=== PATIENT | male | born 1995 | race African-American/Black ===

== ENCOUNTER 2022-11-21 18:51 | Inpatient (IN) | payer OTHER ==
[~2022-11-21] VITALS: Ht 193 cm; Wt 64.9 kg
[2022-11-21 19:02] VITALS: BP_SYST 114
--- NOTE | 2022-11-21 19:23 | NUR ---
Placed in room 04 . Placed on monitoring coordinator, blood pressure machine and pulse oximeter. To gown for exam. Side rails up. Report given to PETROS SERRATO
[2022-11-21] MEDS ORDERED: cefTRIAXone 1 GM in LIDOCAINE 1%, 20 ML MDV 2.1 ML IM ONE (19:30)
[2022-11-21] MEDS ORDERED: NACL 0.9% 1,000 ML IV ONE ×2 (19:30)
--- NOTE | 2022-11-21 19:54 | NUR ---
COVID AND MRSA SWAB COLLECTED AND SENT TO LAB.
[2022-11-21 20:01] LABS: EOSINOPHILS % (AUTO) 0.2 % (0.0-4.0); HEMOGLOBIN 11.3 g/dL (14.0-18.0); LYMPHOCYTES # (AUTO) 0.1 K/uL (1.0-5.5); LYMPHOCYTES % (AUTO) 0.8 % (20.5-51.5); MEAN CORPUSCULAR HEMOGLOBIN 28 pg (27-31); MEAN CORPUSCULAR HGB CONC 33 % (32-36); MEAN CORPUSCULAR VOLUME 83 fL (79.0-98.0); MONOCYTES # (AUTO) 0.1 K/uL (0.0-1.0); MONOCYTES % (AUTO) 0.9 % (1.7-9.3); NEUTROPHILS # (AUTO) 15.1 K/uL (1.8-7.7); NEUTROPHILS % (AUTO) 98.1 % (40.0-70.0); PLATELET COUNT (AUTO) 353 K/uL (130-430); RED BLOOD CELL COUNT(AUTO) 4.08 MIL/uL (4.2-6.2); RED CELL DISTRIBUTION WIDTH 16.1 % (9.0-15.0); WHITE BLOOD COUNT (AUTO) 15.4 K/uL (4.8-10.8)
[2022-11-21 20:16] LABS: ALBUMIN 3.1 g/dL (3.4-4.8); CALCIUM 9.4 mg/dL (8.4-11.0); CREATININE 0.55 mg/dL (0.55-1.30); TOTAL BILIRUBIN 0.6 mg/dL (0.0-1.0)
[2022-11-21] MEDS ORDERED: cefTRIAXone 1 GM VIAL ONE (21:31)
[2022-11-21] MEDS ORDERED: FUROSEMIDE 40 MG/4 ML VIAL IVP ONE (21:45)
[2022-11-21] MEDS ORDERED: VANCOMYCIN HCL 1,000 MG in NS 250 ML IV ONE (21:45)
[2022-11-21] MEDS ORDERED: metroNIDAZOLE 500 mg/NS 100 ML IV ONE (21:45)
[2022-11-21] MEDS ORDERED: VANCOMYCIN HCL 1000 MG/VIAL IV ONE (21:47)
[2022-11-21] MEDS ORDERED: ACETAMINOPHEN 500 MG TABLET PO ONE (23:45)
[2022-11-21] MEDS ORDERED: ACET-73 GT ×2 (23:54)
[2022-11-21] MEDS ORDERED: FAMO20TA8 GT (23:54)
[2022-11-21] MEDS ORDERED: ASCO500T20 GT (23:54)
[2022-11-21] MEDS ORDERED: PROP10TA10 GT (23:54)
[2022-11-21] MEDS ORDERED: MIDO5TAB4 GT (23:54)
[2022-11-21] MEDS ORDERED: AMIN30LI2 GT (23:54)
[2022-11-21] MEDS ORDERED: FLAGYL GT (23:54)
[2022-11-21] MEDS ORDERED: [UNRECOGNIZED DRUG - CODE] TP (23:54)
[2022-11-21] MEDS ORDERED: ACET325T GT (23:54)
[2022-11-21] MEDS ORDERED: IPRA4AER INH (23:54)
[2022-11-22 00:02] LABS: BILIRUBIN,URINE NEGATIVE (NEGATIVE); BLOOD, URINE 3+ (NEGATIVE); CLARITY/URINE SL CLOUDY (CLEAR); COLOR,URINE YELLOW (YELLOW); GLUCOSE,URINE NEGATIVE (NEGATIVE); KETONES,URINE NEGATIVE (NEGATIVE); LEUKOCYTE ESTERASE ,URINE 2+ (NEGATIVE); NITRITE, URINE POSITIVE (NEGATIVE); PH,URINE 7.5 (5.0-8.0); PROTEIN URINE NEGATIVE (NEGATIVE); UROBILINOGEN,URINE 0.2 (0.2-1.0)
[2022-11-22 00:14] LABS: BACTERIA,URINE MANY /HPF (None Seen); RBC,URINE >100 /HPF (0-3); WBC,URINE 80-100 /HPF (0-3)
[2022-11-22] MEDS ORDERED: NACL 0.9% 1,000 ML IV SCH (00:30)
--- NOTE | 2022-11-22 00:33 | NUR ---
Admit bed requested Patient will be admitted to care of . Admitted to TELE unit. Diagnosis SEPSIS Inpatient (Yes or No) YES Observation (Yes or No) NO Orientation concerns or request close to nursing station (Yes or No) YES Covid Status POSITIVE On vent or bipap NO Isolation requirements NO Needs a sitter NO From Home (Yes or if No enter name of facility) [facility] Requires Dialysis (Yes or No) NO Med Rec Completed (Yes of No) YES
--- NOTE | 2022-11-22 04:05 | NUR ---
Attempted to bring patient multiple times earlier. Prior times assigned nurse busy with other assigned critical patient. At this time Notified by charge nurse to call first before arrival. INstructed by tele charge nurse that assigned nurse is on break.
--- NOTE | 2022-11-22 04:45 | NUR ---
Patient will be admitted to care of . Admitted to tele unit. Will go to room 133 B. Belongings list completed. Complete and up to date summary report printed. SBAR report given to PETROS Chance at bedside with opportunity for questions.
--- NOTE | 2022-11-22 05:15 | NUR ---
Patient admitted to room 133 (a). No acute distress noted. Coccyx ulcer noted. Will continue to monitor.
[2022-11-22 05:20] VITALS: BP_SYST 115
[2022-11-22] MEDS ORDERED: PIPERACILLIN/TAZO 3.375 GM in NS 50 ML IV SCH (06:00)
[2022-11-22] MEDS ORDERED: PIPERACILLIN/TAZOBACTAM 3.375 GM/VIAL (ZOSYN) IV ONE (06:07)
[2022-11-22 06:10] LABS: BASOPHILS % (AUTO) 0.2 % (0.0-2.0); EOSINOPHILS % (AUTO) 0.1 % (0.0-4.0); HEMATOCRIT 32.2 % (36-54); HEMOGLOBIN 10.5 g/dL (14.0-18.0); LYMPHOCYTES # (AUTO) 0.3 K/uL (1.0-5.5); LYMPHOCYTES % (AUTO) 2.3 % (20.5-51.5); MEAN CORPUSCULAR HEMOGLOBIN 28 pg (27-31); MEAN CORPUSCULAR HGB CONC 33 % (32-36); MEAN CORPUSCULAR VOLUME 84 fL (79.0-98.0); MONOCYTES # (AUTO) 0.5 K/uL (0.0-1.0); MONOCYTES % (AUTO) 4.1 % (1.7-9.3); NEUTROPHILS # (AUTO) 12.3 K/uL (1.8-7.7); NEUTROPHILS % (AUTO) 93.3 % (40.0-70.0); PLATELET COUNT (AUTO) 335 K/uL (130-430); RED BLOOD CELL COUNT(AUTO) 3.82 MIL/uL (4.2-6.2); RED CELL DISTRIBUTION WIDTH 16.1 % (9.0-15.0); WHITE BLOOD COUNT (AUTO) 13.2 K/uL (4.8-10.8)
[2022-11-22 06:22] LABS: CALCIUM 8.8 mg/dL (8.4-11.0); CREATININE 0.5 mg/dL (0.55-1.30)
--- NOTE | 2022-11-22 07:15 | NUR ---
OPENING NOTE RECEIVED SBAR FROM NIGHT RN. PATIENT IN BED, TRACH TO MASK,, JAMES DRAINING BY GRAVITY. IVF RUNNING ORDERED. BED IN LOW AND LOCKED POSITION, CALL LIGHT WITHIN REACH, BED ALARM ON
--- NOTE | 2022-11-22 07:28 | NUR ---
CONSULT ID LIZETH NICK [phone] S/W CHRIS EXCHANGE
[2022-11-22] MEDS ORDERED: ONDANSETRON HCL 4 MG/2 ML VIAL IVP PRN (07:30)
[2022-11-22] MEDS ORDERED: DOCUSATE SODIUM 100 MG CAPSULE PO PRN (07:30)
[2022-11-22] MEDS ORDERED: MORPHINE 2 MG/ML INJ. SYRINGE IVP PRN ×2 (07:30)
[2022-11-22] MEDS ORDERED: LORazepam 2 MG/ML VIAL IVP PRN (07:30)
[2022-11-22] MEDS ORDERED: ACETAMINOPHEN 325 MG TABLET PO PRN (07:30)
[2022-11-22] MEDS ORDERED: MUPIROCIN 2% TOPICAL OINTMENT 22 GM NS PRN (07:30)
[2022-11-22] MEDS ORDERED: MAGNESIUM SULFATE 50 ML IV PRN (07:30)
[2022-11-22 08:00] VITALS: BP_SYST 127
[2022-11-22] MEDS ORDERED: DEXAMETHASONE SOD PHOSPHATE 10 MG/ML VIAL IVP ONE (08:30)
[2022-11-22] MEDS: ASCORBIC ACID 500 MG TABLET GT SCH (09:16)
--- NOTE | 2022-11-22 09:42 | NUR ---
POTASSIUM INFORMED DR GRIGSBY OF POTASSIUM NO NEW ORDERS
--- NOTE | 2022-11-22 09:42 | NUR ---
MD DR GRIGSBY BEDSIDE EXAMINING PATIENT
[2022-11-22] MEDS ORDERED: VANCOMYCIN HCL 1,000 MG in NS 250 ML IV ONE (10:00)
[2022-11-22] MEDS ORDERED: IPRATROPIUM BROM 0.5 MG/2.5 ML VIAL.NEB (ATROVENT) INH PRN (11:00)
[2022-11-22] MEDS ORDERED: IPRATROPIUM BROM 0.5 MG/2.5 ML VIAL.NEB (ATROVENT) INH SCH (11:00)
[2022-11-22] MEDS ORDERED: ALBUTEROL MDI INHALATION 8 GM INH INH SCH (11:00)
[2022-11-22] MEDS: MIDODRINE HCL 5 MG TABLET (PROAMATINE) GT SCH ×3 (11:32→23:33)
[2022-11-22] MEDS: ALBUTEROL MDI INHALATION 8 GM INH INH SCH ×3 (11:36→19:40)
[2022-11-22 12:00] VITALS: BP_SYST 122
[2022-11-22 12:46] LABS: C-REACTIVE PROTEIN QUANT 7.9 mg/dL (0-0.5)
[2022-11-22] MEDS: PROPRANOLOL HCL 10 MG TABLET (INDERAL) GT SCH ×2 (13:13→21:18)
[2022-11-22] MEDS: PIPERACILLIN/TAZO 3.375 GM in NS 50 ML IV SCH ×2 (13:14→21:17)
--- NOTE | 2022-11-22 13:47 | NUR ---
CRITICAL PAGED DR GRIGSBY SPOKE WITH ALLAN BUCKNER [id number]
--- NOTE | 2022-11-22 15:15 | NUR ---
CRITICAL INFORMED DR HINTON DIMER OF 29[address] J0 Addendum: 11/22/22 at 1614 by Sonia Workman RN APPLE HERNANDEZ
--- NOTE | 2022-11-22 15:22 | NUR ---
CRITICAL PAGED DR GRIGSBY REGARDING CRITICAL
--- NOTE | 2022-11-22 15:40 | NUR ---
CRITICAL INFORMED DR GRIGSBY OF CRITICAL D DIMER NO NEW ORDERS
[2022-11-22 16:00] VITALS: BP_SYST 125
[2022-11-22] MEDS ORDERED: VANCOMYCIN HCL 1,000 MG in D5W 250 ML IV SCH (18:00)
--- NOTE | 2022-11-22 19:08 | NUR ---
CLOSING NOTE PROVIDED SBAR TO NIGHT RN. PATIENT IN BED, RESPIRATIONS EVEN, NON LABORED, 2L 02 TO TRACH. IV IS SALINE LOCKED. JAMES DRAINING BY GRAVITY. BED IN LOW AND LOCKED POSITION CALL LIGHT WITHIN REACH. BED ALARM ON. ENDORSED WOUND CARE TO NIGHT RN. ENDORSED CARE TO NIGHT RN. WAITING FOR DIETARY TO PLACE ORDER FOR GTUBE FEEDING
[2022-11-22 20:00] VITALS: BP_SYST 118; BP_SYST 144
--- NOTE | 2022-11-22 20:12 | NUR ---
OPENING NOTES: Patient received from AM shift nurse. Patient is unable to make needs know with no noted s/s of distress. Chest rise is even and unlabored on a trach. Patient is stable at this time, and safety measures are in place as per protocol. Will resume care and continue to monitor throughout the shift.
--- NOTE | 2022-11-22 23:58 | NUR ---
Dr. Darden paged: Blood culture reported and Gram negative Bacteria was found. Dr. Darden notified no new orders at this time.
[2022-11-23 00:28] VITALS: BP_SYST 121
[2022-11-23] MEDS: PROPRANOLOL HCL 10 MG TABLET (INDERAL) GT SCH ×3 (05:33→22:22)
[2022-11-23] MEDS: MIDODRINE HCL 5 MG TABLET (PROAMATINE) GT SCH ×4 (05:33→22:22)
[2022-11-23] MEDS: PIPERACILLIN/TAZO 3.375 GM in NS 50 ML IV SCH ×3 (05:34→22:22)
[2022-11-23 07:03] LABS: BASOPHILS % (AUTO) 0.5 % (0.0-2.0); EOSINOPHILS % (AUTO) 0.2 % (0.0-4.0); HEMATOCRIT 31.8 % (36-54); HEMOGLOBIN 10.4 g/dL (14.0-18.0); LYMPHOCYTES # (AUTO) 0.9 K/uL (1.0-5.5); LYMPHOCYTES % (AUTO) 8.8 % (20.5-51.5); MEAN CORPUSCULAR HEMOGLOBIN 28 pg (27-31); MEAN CORPUSCULAR HGB CONC 33 % (32-36); MEAN CORPUSCULAR VOLUME 84 fL (79.0-98.0); MONOCYTES # (AUTO) 1.1 K/uL (0.0-1.0); NEUTROPHILS # (AUTO) 7.8 K/uL (1.8-7.7); NEUTROPHILS % (AUTO) 79.5 % (40.0-70.0); PLATELET COUNT (AUTO) 309 K/uL (130-430); RED BLOOD CELL COUNT(AUTO) 3.79 MIL/uL (4.2-6.2); WHITE BLOOD COUNT (AUTO) 9.8 K/uL (4.8-10.8)
--- NOTE | 2022-11-23 07:30 | NUR ---
OPENING NOTES LETHARGIC. NO SIGN OF SHORTNESS OF BREATH OR PAIN. TRACH TO MASK RECEIVING 3 LITERS OF O2 VIA NASAL CANNULA. GTUBE IN PLACE. JAMES CATHETER IN PLACE, DRAINING YELLOW URINE. REPOSITIONED. SAFETY CHECKS DONE. ISOLATION AND ASPIRATION PRECAUTION IN PLACE.
[2022-11-23 07:38] LABS: CALCIUM 9.4 mg/dL (8.4-11.0); CREATININE 0.48 mg/dL (0.55-1.30)
[2022-11-23 08:00] VITALS: BP_SYST 114
[2022-11-23] MEDS: ALBUTEROL MDI INHALATION 8 GM INH INH SCH ×4 (08:09→20:12)
[2022-11-23] MEDS: D5NS 1,000 ML IV SCH (09:00)
[2022-11-23] MEDS ORDERED: KCL 40 mEq in 100 mL (PREMIX) 100 ML IV ONE (10:15)
[2022-11-23] MEDS: DEXAMETHASONE SOD PHOSPHATE 10 MG/ML VIAL IVP SCH (10:41)
[2022-11-23] MEDS: ENOXAPARIN SODIUM 30 MG/0.3 ML SYRINGE SUBCUT SCH (10:42)
[2022-11-23] MEDS: ASCORBIC ACID 500 MG TABLET GT SCH (10:42)
[2022-11-23] MEDS ORDERED: POTASSIUM CHLORIDE 40 MEQ in NS 250 ML IV ONE (11:00)
[2022-11-23 12:00] VITALS: BP_SYST 115
--- NOTE | 2022-11-23 12:00 | NUR ---
NO SIGN OF DISTRESS. REPOSITIONED. POTASSIUM IV RUNNING WELL. SAFETY CHECKS DONE.
--- NOTE | 2022-11-23 14:00 | NUR ---
DIETARY FOLLOWED UP WITH CONSUMER STUDIES PROFESSOR HERNANDEZ ABOUT TUBE FEEDING. INFORMED HER THAT THE PATIENT USED TO GET ISOSOURCE 1.5 @ 75ML/HR. SHE SAID SHE'S GOING TO THINK OF A SUBSTITUTE.
--- NOTE | 2022-11-23 15:04 | NUR ---
Nutrition Note: RD s/w patient RN while rounding on the floor. RN requested TF recs for pt. EN equivalent to Isosource available in [facility] is Osmolite, however [facility] does not have Osmolite 1.5. RD recommends Pivot 1.5 d/t higher kcal content peptide based formula for metabolically stressed patients. RD unable to complete full nutrition assessment d/t high RD workload. Nutrition assessment to be completed 11/24 per nutrition care standards. - Previous TF (per RN) = Isosource 1.5 @ 75 mL/hr (goal); [facility] 150 mL Q4H via GT - Ordered: Pivot 1.5 @ 70 mL/hr (goal); [facility] 150 mL Q4H via GT Provides 2520 kcal/day. 158g PRO/day, 2.1 L FW + [facility] Guerline Sheppard MPH, RDN
[2022-11-23 16:42] VITALS: BP_SYST 113
--- NOTE | 2022-11-23 18:39 | NUR ---
CLOSING NOTES ASLEEP. NO SIGN OF RESPIRATORY DISTRESS OR PAIN. IV INFUSING WELL. TUBE FEEDING TO BE STARTED. SAFETY CHECKS DONE. ISOLATION PRECAUTIONS CONTINUED.
[2022-11-23 20:00] VITALS: BP_SYST 105
[2022-11-24 04:06] VITALS: BP_SYST 112
[2022-11-24] MEDS: MIDODRINE HCL 5 MG TABLET (PROAMATINE) GT SCH ×3 (05:45→17:34)
[2022-11-24] MEDS: PIPERACILLIN/TAZO 3.375 GM in NS 50 ML IV SCH ×3 (05:49→21:20)
[2022-11-24] MEDS: PROPRANOLOL HCL 10 MG TABLET (INDERAL) GT SCH ×3 (05:54→21:21)
[2022-11-24 06:19] LABS: BASOPHILS % (AUTO) 0.2 % (0.0-2.0); EOSINOPHILS % (AUTO) 0.2 % (0.0-4.0); HEMATOCRIT 32.8 % (36-54); HEMOGLOBIN 10.8 g/dL (14.0-18.0); LYMPHOCYTES # (AUTO) 1.1 K/uL (1.0-5.5); LYMPHOCYTES % (AUTO) 10.2 % (20.5-51.5); MEAN CORPUSCULAR HEMOGLOBIN 28 pg (27-31); MEAN CORPUSCULAR HGB CONC 33 % (32-36); MEAN CORPUSCULAR VOLUME 84 fL (79.0-98.0); MONOCYTES # (AUTO) 1.1 K/uL (0.0-1.0); MONOCYTES % (AUTO) 10.4 % (1.7-9.3); NEUTROPHILS # (AUTO) 8.5 K/uL (1.8-7.7); PLATELET COUNT (AUTO) 337 K/uL (130-430); RED BLOOD CELL COUNT(AUTO) 3.93 MIL/uL (4.2-6.2); RED CELL DISTRIBUTION WIDTH 16.1 % (9.0-15.0); WHITE BLOOD COUNT (AUTO) 10.8 K/uL (4.8-10.8)
[2022-11-24 06:20] LABS: CALCIUM 9.2 mg/dL (8.4-11.0); CREATININE 0.45 mg/dL (0.55-1.30)
--- NOTE | 2022-11-24 06:23 | NUR ---
CLOSING NOTES: Patient is in bed resting no s/s of distress is noted at this time. No s/s of distress is noted at this time. IVF are infusing as per order via PICC line that is clean dry and intact with no s/s of infiltration or arm swelling. GT feeding was started on AM shift with orders to increase by 20mL q4-ghrs as patient tolerates it until reach goal of 70mL/hr. Patient was received at 1900 and feeding was increased at 2300 to 50mL/hr no residual noted at this time. GT was flushed 150ml q4h as ordered and was increased to final goal rate of 70ml/hr at 0500. Patient tolerated the feeding well as evidence by a residual of <10ml. All current shift needs have been met, patient is stable at this time and safety measures are in place as per protocol.
[2022-11-24] MEDS: ALBUTEROL MDI INHALATION 8 GM INH INH SCH ×4 (07:11→20:36)
[2022-11-24 08:00] VITALS: BP_SYST 105
[2022-11-24] MEDS: ASCORBIC ACID 500 MG TABLET GT SCH (10:42)
[2022-11-24] MEDS: DEXAMETHASONE SOD PHOSPHATE 10 MG/ML VIAL IVP SCH (10:43)
[2022-11-24] MEDS: ENOXAPARIN SODIUM 30 MG/0.3 ML SYRINGE SUBCUT SCH (10:43)
[2022-11-24 11:18] VITALS: BP_SYST 110
--- NOTE | 2022-11-24 15:14 | NUR ---
Dietitian Recommendations * Adjust goal rate: Pivot 1.5 @ 60 mL/hr (goal), [facility] 150mL Q4H via GT Provides (w/ D5): 2364 kcal, 135 g PRO, 1980 mL free water (inc FWF) Meets: 104% higher kcal, 104% est higher PRO, 100% est fluid needs * Ordered: Eduardo BID * Consider wound supplements: MVI, 250 mg VIT C; 220mg ZnSO4 x 14 days for wound healing * Consider D/C D5/NS if BG remain high GS, MPH, RD Please refer to RD Assessment for further details Addendum: 11/24/22 at [address] Amended: Links added.
--- NOTE | 2022-11-24 16:30 | NUR ---
Dr Longoria has been made aware of urine positive for ESBL
[2022-11-24 17:11] VITALS: BP_SYST 114
[2022-11-24] MEDS: D5NS 1,000 ML IV SCH (17:30)
--- NOTE | 2022-11-24 18:45 | NUR ---
Mr Aldana has been assessed as indicated. His moist productive cough continues. TF has been well tolerated. Elsi has adequate output. IVF via REESE PICC have been well tolerated. This life insurance underwriter spoke with his mother, Miss. Rajan for updates several times today. she wanted to facetime him but the ipad was not working. He remains non verbal and has no s/s of distress or discomfort.
--- NOTE | 2022-11-24 19:15 | NUR ---
Handoff has been given to nikolas
--- NOTE | 2022-11-24 19:20 | NUR ---
PM ASSESSMENT; -Pt is obtunded, resting in bed. No s/s any chest pain,pain,sob, or any acute distress noted. REESE PICC site patent except white port. IVF infusing well. G-tube Pivot 1.5 @ 60ml/hr, no residual noted. Keep HOB > 30 degree entire time. Bedbound. Pt is on T-bar with 3L nc oxy. Calzada cath w/ gravity drains yellow urine output. Maintains droplet isolation. Unable to discuss poc d/t cognitive limitation and no family is available. Side rails x3, bed alarmed. Cont to monitor pt.
[2022-11-24 19:25] VITALS: BP_SYST 117
[2022-11-24] MEDS: POTASSIUM CHLORIDE 20 MEQ TAB.PRT.SR PO PRN (21:21)
[2022-11-25] VITALS (8 sets, daily range): BP systolic 98–117
[2022-11-25] MEDS: MIDODRINE HCL 5 MG TABLET (PROAMATINE) GT SCH ×5 (00:18→21:58)
--- NOTE | 2022-11-25 00:18 | NUR ---
ROUNDS; INCONTINENT OF LOOSE BOWEL MOVT -Provided perineal care, all new gown, pillow cases, bedding sheet, and chux. Now, pt is cleaned and dry. Pt is resting in bed comfortably. No s/s any chest pain,pain,sob, or any acute distress noted. G-tube Pivot 1.5 @ 60ml/hr, no residual, gave Midodrine via G-tube flushed w/ 150ml. VSS. Keep HOB > 30 degree entire time. Bedbound. Pt is on T-bar with 3L nc oxy. Calzada cath w/ gravity drains cloudy yellow urine output. Maintains droplet isolation. Suctioned pt with yellow thick secretion noted. Side rails x3, bed alarmed. Cont to monitor pt.
--- NOTE | 2022-11-25 04:23 | NUR ---
ROUNDS; -Pt is resting in bed comfortably. No s/s any chest pain,pain,sob, or any acute distress noted. G-tube Pivot 1.5 @ 60ml/hr, no residual noted. Keep HOB > 30 degree entire time. Pt is on T-bar with 3L nc [id number]%. Calzada cath w/ gravity drains cloudy yellow urine, adequate output. Maintains droplet isolation entire shift. Side rails x3, bed alarmed. Cont to monitor pt.
[2022-11-25] MEDS: D5NS 1,000 ML IV SCH (05:25)
[2022-11-25] MEDS: PIPERACILLIN/TAZO 3.375 GM in NS 50 ML IV SCH ×2 (05:26→15:03)
[2022-11-25] MEDS: PROPRANOLOL HCL 10 MG TABLET (INDERAL) GT SCH ×3 (05:37→21:59)
--- NOTE | 2022-11-25 06:35 | NUR ---
CLOSING NOTES; -Pt is resting in bed comfortably. No s/s any chest pain,pain,sob, or any acute distress noted. G-tube Pivot 1.5 @ 60ml/hr, no residual noted. Keep HOB > 30 degree entire time. Pt is on T-bar with 3L nc [id number]%. Calzada cath w/ gravity drains cloudy yellow urine, adequate output. Maintains droplet isolation entire shift. Side rails x3, bed alarmed. will endorse to next nurse to cont care.
[2022-11-25 08:22] LABS: BASOPHILS % (AUTO) 0.8 % (0.0-2.0); EOSINOPHILS % (AUTO) 0.8 % (0.0-4.0); HEMATOCRIT 30.5 % (36-54); HEMOGLOBIN 10.1 g/dL (14.0-18.0); LYMPHOCYTES % (AUTO) 16.6 % (20.5-51.5); MEAN CORPUSCULAR HEMOGLOBIN 28 pg (27-31); MEAN CORPUSCULAR HGB CONC 33 % (32-36); MEAN CORPUSCULAR VOLUME 84 fL (79.0-98.0); MONOCYTES # (AUTO) 0.8 K/uL (0.0-1.0); MONOCYTES % (AUTO) 12.6 % (1.7-9.3); NEUTROPHILS # (AUTO) 4.2 K/uL (1.8-7.7); NEUTROPHILS % (AUTO) 69.2 % (40.0-70.0); PLATELET COUNT (AUTO) 294 K/uL (130-430); RED BLOOD CELL COUNT(AUTO) 3.64 MIL/uL (4.2-6.2); WHITE BLOOD COUNT (AUTO) 6.1 K/uL (4.8-10.8)
[2022-11-25 08:40] LABS: CALCIUM 8.8 mg/dL (8.4-11.0); CREATININE 0.46 mg/dL (0.55-1.30)
[2022-11-25] MEDS: ALBUTEROL MDI INHALATION 8 GM INH INH SCH ×4 (09:30→20:23)
[2022-11-25] MEDS: DEXAMETHASONE SOD PHOSPHATE 10 MG/ML VIAL IVP SCH (09:45)
[2022-11-25] MEDS: ENOXAPARIN SODIUM 30 MG/0.3 ML SYRINGE SUBCUT SCH (09:46)
[2022-11-25] MEDS: ASCORBIC ACID 500 MG TABLET GT SCH (09:46)
[2022-11-25] MEDS ORDERED: MERO1PIG IV (10:21)
[2022-11-25] MEDS ORDERED: [UNRECOGNIZED DRUG - CODE] IVP (10:22)
[2022-11-25] MEDS: ERTAPENEM SODIUM 1 GM in NS 50 ML IV SCH (18:03)
--- NOTE | 2022-11-25 19:40 | NUR ---
PM ASSESSMENT; -Pt is obtunded, resting in bed. No s/s any chest pain,pain,sob, or any acute distress noted. REESE PICC site patent except white port. IVF infusing well. G-tube Pivot 1.5 @ 60ml/hr, no residual noted. Keep HOB > 30 degree entire time. Bedbound. Pt is on T-bar with 3L nc oxy, [id number]%. Calzada cath w/ gravity drains yellow urine output. Maintains droplet isolation. Unable to discuss poc d/t cognitive limitation and no family is available. Side rails x3, bed alarmed. Cont to monitor pt.
[2022-11-25] MEDS: POTASSIUM CHLORIDE 20 MEQ TAB.PRT.SR PO PRN (21:58)
--- NOTE | 2022-11-26 00:09 | NUR ---
ROUNDS; -Pt is resting in bed comfortably. No s/s any chest pain,pain,sob, or any acute distress noted. G-tube Pivot 1.5 @ 60ml/hr, no residual, flushed with water 150ml. Keep HOB > 30 degree entire time. Pt is on T-bar with 3L nc oxy. Calzada cath with gravity in place. Maintains droplet isolation entire shift. Side rails x3, bed alarmed. Cont to monitor pt.
[2022-11-26 01:03] VITALS: BP_SYST 112
--- NOTE | 2022-11-26 04:11 | NUR ---
ROUNDS; -Pt is resting in bed comfortably. No s/s any chest pain,pain,sob, or any acute distress noted. G-tube Pivot 1.5 @ 60ml/hr, no residual noted. Keep HOB > 30 degree entire time. Pt is on T-bar with 3L nc oxy. Calzada cath w/ gravity drains cloudy yellow urine, adequate output. Maintains droplet isolation entire shift. Side rails x3, bed alarmed. Cont to monitor pt.
[2022-11-26] MEDS: D5NS 1,000 ML IV SCH ×2 (05:09→17:43)
[2022-11-26] MEDS: PROPRANOLOL HCL 10 MG TABLET (INDERAL) GT SCH ×3 (05:09→23:20)
[2022-11-26] MEDS: MIDODRINE HCL 5 MG TABLET (PROAMATINE) GT SCH ×4 (05:09→23:20)
--- NOTE | 2022-11-26 06:26 | NUR ---
CLOSING NOTES; -Pt is resting in bed comfortably. No s/s any chest pain,pain,sob, or any acute distress noted. G-tube Pivot 1.5 @ 60ml/hr, no residual, pt tolerated well. Keep HOB > 30 degree entire time. Pt is on T-bar with 3L nc oxy. Calzada cath w/ gravity drains cloudy yellow urine, adequate output. Maintains droplet isolation entire shift. Side rails x3, bed alarmed. will endorse to next nurse to cont care.
[2022-11-26 07:16] LABS: BASOPHILS % (AUTO) 0.5 % (0.0-2.0); EOSINOPHILS # (AUTO) 0.1 K/uL (0.0-0.4); EOSINOPHILS % (AUTO) 1.3 % (0.0-4.0); HEMOGLOBIN 11.2 g/dL (14.0-18.0); LYMPHOCYTES # (AUTO) 1.8 K/uL (1.0-5.5); LYMPHOCYTES % (AUTO) 29.6 % (20.5-51.5); MEAN CORPUSCULAR HEMOGLOBIN 28 pg (27-31); MEAN CORPUSCULAR HGB CONC 33 % (32-36); MEAN CORPUSCULAR VOLUME 84 fL (79.0-98.0); MONOCYTES # (AUTO) 0.9 K/uL (0.0-1.0); NEUTROPHILS # (AUTO) 3.3 K/uL (1.8-7.7); NEUTROPHILS % (AUTO) 54.6 % (40.0-70.0); PLATELET COUNT (AUTO) 384 K/uL (130-430); RED BLOOD CELL COUNT(AUTO) 4.05 MIL/uL (4.2-6.2); RED CELL DISTRIBUTION WIDTH 16.1 % (9.0-15.0); WHITE BLOOD COUNT (AUTO) 6.1 K/uL (4.8-10.8)
[2022-11-26] MEDS: ALBUTEROL MDI INHALATION 8 GM INH INH SCH ×3 (07:38→16:06)
[2022-11-26 07:44] LABS: CALCIUM 9.3 mg/dL (8.4-11.0); CREATININE 0.3 mg/dL (0.55-1.30)
[2022-11-26 08:00] VITALS: BP_SYST 121
--- NOTE | 2022-11-26 08:05 | NUR ---
OPENING NOTE: PT IN BED WITH EYES CLOSED. NO S/S OF DISTRESS OR PAIN REPORTED. BREATHING IS EVEN AND UNLABORED ON TBAR. ALL NEEDS MET AT THIS TIME, SAFETY CHECKS MADE AND CALL LIGHT WITHIN REACH.
[2022-11-26] MEDS: ASCORBIC ACID 500 MG TABLET GT SCH (08:51)
[2022-11-26] MEDS: ENOXAPARIN SODIUM 30 MG/0.3 ML SYRINGE SUBCUT SCH (08:52)
[2022-11-26] MEDS: DEXAMETHASONE SOD PHOSPHATE 10 MG/ML VIAL IVP SCH (09:18)
--- NOTE | 2022-11-26 11:05 | NUR ---
SPOKE WITH FAMILY Spoke with patient's mother, Zaira, and updated her on the patient and the plan of care. All questions answered.
[2022-11-26 12:07] VITALS: BP_SYST 107
[2022-11-26 17:33] VITALS: BP_SYST 110
[2022-11-26] MEDS: ERTAPENEM SODIUM 1 GM in NS 50 ML IV SCH (17:44)
--- NOTE | 2022-11-26 18:54 | NUR ---
CLOSING NOTES: Pt is in bed with eyes closed. No s/s of distress or pain. G-tube Pivot 1.5 @ 60ml/hr, no residual, pt tolerated well. Keep HOB > 30 degree entire time. Pt is on T-bar with 2L nc oxy. Calzada cath w/ gravity drains cloudy yellow urine, adequate output. Maintains droplet isolation entire shift. Side rails x3, bed alarmed. will endorse to night nurse.
[2022-11-26 19:00] VITALS: BP_SYST 115
[2022-11-26 20:00] VITALS: BP_SYST 115
[2022-11-27] VITALS: BP_SYST 112
[2022-11-27] MEDS: PROPRANOLOL HCL 10 MG TABLET (INDERAL) GT SCH ×3 (05:56→22:21)
[2022-11-27] MEDS: MIDODRINE HCL 5 MG TABLET (PROAMATINE) GT SCH ×3 (05:57→17:41)
[2022-11-27 06:42] LABS: BASOPHILS % (AUTO) 0.4 % (0.0-2.0); EOSINOPHILS # (AUTO) 0.1 K/uL (0.0-0.4); EOSINOPHILS % (AUTO) 0.8 % (0.0-4.0); HEMATOCRIT 35.5 % (36-54); HEMOGLOBIN 11.6 g/dL (14.0-18.0); LYMPHOCYTES # (AUTO) 1.8 K/uL (1.0-5.5); MEAN CORPUSCULAR HEMOGLOBIN 28 pg (27-31); MEAN CORPUSCULAR HGB CONC 33 % (32-36); MEAN CORPUSCULAR VOLUME 84 fL (79.0-98.0); MONOCYTES # (AUTO) 0.8 K/uL (0.0-1.0); MONOCYTES % (AUTO) 11.9 % (1.7-9.3); NEUTROPHILS % (AUTO) 59.9 % (40.0-70.0); PLATELET COUNT (AUTO) 382 K/uL (130-430); RED BLOOD CELL COUNT(AUTO) 4.23 MIL/uL (4.2-6.2); RED CELL DISTRIBUTION WIDTH 16.1 % (9.0-15.0); WHITE BLOOD COUNT (AUTO) 6.7 K/uL (4.8-10.8)
[2022-11-27 06:48] LABS: CALCIUM 9.4 mg/dL (8.4-11.0); CREATININE 0.41 mg/dL (0.55-1.30)
[2022-11-27 08:00] VITALS: BP_SYST 117
[2022-11-27] MEDS: ENOXAPARIN SODIUM 30 MG/0.3 ML SYRINGE SUBCUT SCH (10:49)
[2022-11-27] MEDS: ASCORBIC ACID 500 MG TABLET GT SCH (10:50)
[2022-11-27] MEDS: DEXAMETHASONE SOD PHOSPHATE 10 MG/ML VIAL IVP SCH (10:50)
[2022-11-27] MEDS: ALBUTEROL MDI INHALATION 8 GM INH INH SCH ×4 (11:10→19:00)
[2022-11-27] MEDS: D5NS 1,000 ML IV SCH (13:09)
[2022-11-27 13:50] VITALS: BP_SYST 116
[2022-11-27] MEDS: ERTAPENEM SODIUM 1 GM in NS 50 ML IV SCH (17:41)
[2022-11-27 18:03] VITALS: BP_SYST 110
[2022-11-27 18:24] VITALS: BP_SYST 109
--- NOTE | 2022-11-27 19:46 | NUR ---
1730:This telegraphic typewriter operator chief(primary RN)called [facility], and gave report on patient's status to nurse Carvajal.
[2022-11-27 20:00] VITALS: BP_SYST 105
--- NOTE | 2022-11-27 20:22 | NUR ---
EMT here for patient transfer. All paperwork given to the EMT staff.
[2022-11-27] MEDS ORDERED: METOPROLOL TARTRATE 5 MG/5 ML VIAL IVP PRN (21:45)
[2022-11-27] MEDS ORDERED: METOPROLOL TARTRATE 5 MG/5 ML VIAL ONE (21:51)
[2022-11-27] MEDS ORDERED: METOPROLOL TARTRATE 5 MG/5 ML VIAL IVP ONE (22:30)
--- NOTE | 2022-11-27 23:21 | NUR ---
Patient heart rate 116. Call placed to the Dr. received new order. EMT staff refused to transfer the patient back to the SNF because the heart is 99, on the borderline according to EMT staff. Call placed to the DR, made aware of EMT's refusal to transport the patient. Facility made aware of patient not transferring. Will continue to monitor.
[2022-11-28] VITALS: BP_SYST 102
[2022-11-28] MEDS: MIDODRINE HCL 5 MG TABLET (PROAMATINE) GT SCH ×4 (01:45→18:29)
[2022-11-28] MEDS: PROPRANOLOL HCL 10 MG TABLET (INDERAL) GT SCH ×2 (04:58→13:53)
[2022-11-28 08:38] VITALS: BP_SYST 108
[2022-11-28] MEDS: ASCORBIC ACID 500 MG TABLET GT SCH (09:00)
[2022-11-28] MEDS: ENOXAPARIN SODIUM 30 MG/0.3 ML SYRINGE SUBCUT SCH (10:29)
[2022-11-28] MEDS: DEXAMETHASONE SOD PHOSPHATE 10 MG/ML VIAL IVP SCH (10:30)
[2022-11-28] MEDS: D5NS 1,000 ML IV SCH (10:31)
[2022-11-28] MEDS: ALBUTEROL MDI INHALATION 8 GM INH INH SCH ×2 (10:32→11:54)
[2022-11-28 11:33] VITALS: BP_SYST 109
[2022-11-28 16:00] VITALS: BP_SYST 110
[2022-11-28] MEDS: ERTAPENEM SODIUM 1 GM in NS 50 ML IV SCH (18:29)
--- NOTE | 2022-11-28 19:45 | NUR ---
PT TRANSFERRED Report was given to Melodie-nurse at [facility] by Millie vaughn. Transfer packet with Transfer Orders and Medication Reconciliation form given to EMT with report. Exitcare provided. [facility] ID band removed, replaced with ID band with pt's name and . Keep REESE PICC with only 1 port patent,white port is nonpatent after attempted to flushed with NS and including Calzada cath in place, emptied prior put in a gurney. All belongings sent with patient. Nonlabored breathing or any acute distress noted. Pt has trachea with T-piece with 2L nc oxy. VSS 98.1, 20, 113/71,95,[id number]%. Patient left floor via gurney escorted by Alondra-LEONELA and her partner in no distress. Patient left floor via gurney escorted by Alondra-EMT and her partner in no distress. Addendum: 11/28/22 at 2211 by [employer] PETROS Mcgarry RN CORRECTION- IT'S 2044 THAT PT LEFT NOT AT 1944.
--- NOTE | 2022-11-28 19:51 | NUR ---
1730: THIS TRANSPLANTER(PRIMARY RN), CALLED [facility]IA [id number] AND WAS INFORMED ETA WOULD BE BETWEEN [phone] THIS EVENING. 1900: THIS TRANSPLANTER CALLED [facility] AND GAVE REPORT ON PATIENT STATUS TO NURSE RUSSELL(ATMOSPHERIC TECHNICIAN).
== END 2022-11-28 20:45 | DRG 720 ==
LOC: SED 18:51 → STU 11-22 00:30 → SMU 11-28 19:02
PROVIDERS: ADMIT Family Medicine; ATTEND Family Medicine
DX: A41.59 Other Gram-negative sepsis (principal); J12.82 Pneumonia due to coronavirus disease 2019; G82.50 Quadriplegia, unspecified; E44.0 Moderate protein-calorie malnutrition; U07.1 COVID-19; G93.40 Encephalopathy, unspecified; N39.0 Urinary tract infection, site not specified; E87.1 Hypo-osmolality and hyponatremia; R13.10 Dysphagia, unspecified; J96.10 Chronic respiratory failure, unspecified whether with hypoxia or hypercapnia; R74.01 Elevation of levels of liver transaminase levels; Z93.0 Tracheostomy status; Z68.1 Body mass index [BMI] 19.9 or less, adult; Z93.1 Gastrostomy status
CPT/HCPCS: 36415; 70470-TC; 71045; 76376; 80048; 80053; 80202; 81000; 83605; 83615; 83690; 83735; 85025; 85379; 86140; 87040; 87081; 87086; 93005; 94640; 94664; 94760; 99291; 99292; G0378; J0696; J1100; J1335; J1650; J1940; J2060; J2543; J3370; J3480; J3490; J7030; J7042; J7050; J7060; Q9967